=== PATIENT | female | born 1990 | race Caucasian/White ===

== ENCOUNTER → 2017-12-03 15:27 | Outpatient (CLI) | payer OTHER, SELFPAY ==
--- NOTE | 2017-12-03 15:30 | MR_ITS ---
MR cervical spine wo con, MR 3-d myelogram/MRCP HISTORY: Neck pain and tightness ITS.REASON: CERVICAL NECK PAIN ORDERING PHYSICIAN: Anh Moss PATIENT AGE: 27 years Comparison: None TECHNIQUE: Standard multiplanar multiecho sequences are performed without contrast. 3-D MIP and myelographic images are also rendered and reviewed FINDINGS: Unremarkable craniocervical junction. C2-C3, C4-C5, and C5-C6 have an unremarkable appearance. There is minimal left foraminal narrowing at C3-C4 from uncovertebral hypertrophy. C6-C7: Minimal bulging disc is present at C6-C7 with mild left foraminal narrowing from bulging disc and uncovertebral hypertrophy. Mild left uncovertebral hypertrophy with mild left-sided foraminal narrowing at C7-T1. No disc herniation or canal stenosis. IMPRESSION: Mild cervical spondylosis as detailed above minimal left foraminal narrowing at C3-C4 C6-C7 and C7-T1. No canal stenosis or disc herniation evident
--- NOTE | 2017-12-03 15:30 | MR_ITS ---
MR thoracic spine wo con HISTORY: Mid upper back pain, pain between scapula ITS.REASON: PAIN IN THORACIC SPINE ORDERING PHYSICIAN: Anh Moss PATIENT AGE: 27 years TECHNIQUE: Standard multiplanar multiecho sequences are performed without contrast. 3-D MIP and myelographic images are also rendered and reviewed FINDINGS: There is normal alignment. No fracture or dislocation. The disc are well-hydrated. No canal stenosis, disc herniation or other significant anomalies. IMPRESSION: Negative MRI of the thoracic spine
== END ==
PROVIDERS: PCP Family Medicine; Visit Provider Nurse Practitioner
DX: M54.2 Cervicalgia (principal); M54.6 Pain in thoracic spine
CPT/HCPCS: 72141; 72146; 76376

== ENCOUNTER → 2018-10-11 14:58 | Outpatient (CLI) | payer OTHER, SELFPAY | PROVIDERS: Visit Provider Nurse Practitioner Family | DX: Z00.00 Encounter for general adult medical examination without abnormal findings (principal) ==

== ENCOUNTER → 2018-11-03 15:23 | Outpatient (POV) | payer OTHER, SELFPAY | PROVIDERS: Visit Provider Dermatology | DX: Z00.00 Encounter for general adult medical examination without abnormal findings (principal) ==

== ENCOUNTER → 2019-11-24 13:27 | Outpatient (CLI) | payer OTHER, SELFPAY ==
--- NOTE | 2019-11-24 13:31 | US_ITS ---
PROCEDURE: US TRANSVAGINAL CLINICAL INDICATION: INFERTILITY MANAGEMENT, COMPARISON: No exams were available for comparison FINDINGS: UTERUS: 6cm x 4cmx 3cm with a combined endometrial thickness of 6.4mm LEFT OVARY: [id number] with a volume of 8.1ml. RIGHT OVARY: [id number] with a volume of 11.2ml. There is blood flow present to both ovaries. There are some small follicles of the ovaries. There is a small amount fluid in the cul-de-sac. IMPRESSION: Small amount fluid in the cul-de-sac otherwise negative pelvic ultrasound Dictated by: Mark Frias MD 11/24/2019 15:26 Electronically signed by Mark Frias MD in [place] 11/24/2019 15:26
== END ==
PROVIDERS: PCP Nurse Practitioner Family; Visit Provider Nurse Practitioner Family
DX: N97.9 Female infertility, unspecified (principal); Z31.9 Encounter for procreative management, unspecified
CPT/HCPCS: 76830

== ENCOUNTER → 2020-01-23 16:33 | Outpatient (CLI) | payer OTHER, SELFPAY ==
[2020-01-23 18:00] LABS: HCG,Quantitative 132860 mIU/ml (0-5.42)
== END ==
PROVIDERS: PCP Nurse Practitioner Family; Visit Provider Nurse Practitioner
DX: N92.5 Other specified irregular menstruation (principal)
CPT/HCPCS: 36415; 84702

== ENCOUNTER 2020-08-04 11:25 | Emergency (ER) | payer OTHER, SELFPAY ==
[2020-08-04 11:40] VITALS: BP 132/88; PULSE 88; RESP 16; TEMP 36.7; O2SAT 98; BMI 26.1
[2020-08-04 11:59] VITALS: BP 132/88; PULSE 88; RESP 16; TEMP 36.7; O2SAT 98
== END 2020-08-04 12:00 | disposition home or self-care (01) ==
LOC: UTC 11:29
PROVIDERS: Emergency Provider Physician Assistant; PCP Nurse Practitioner Family
DX: Z23 Encounter for immunization (principal)
CPT/HCPCS: 90471; 90715

== ENCOUNTER → 2021-04-20 13:45 | Outpatient (CLI) | payer OTHER, SELFPAY ==
[2021-04-20 14:12] LABS: Hemoglobin A1C 5.4 % (4.0-6.0)
[2021-04-20 14:53] LABS: Alanine Aminotransferase 14 U/L (12-78); Albumin Level 4.4 g/dl (3.5-5.0); Albumin/Globulin Ratio 1.5 (1.1-1.8); Alkaline Phosphatase 125 U/L (38-126); Anion Gap 11.2 mEq/L (5-15); Aspartate Amino Transferase 21 U/L (14-36); Bilirubin,Total 0.2 mg/dl (0.2-1.3); Blood Urea Nitrogen 9 mg/dl (7-17); Calcium 9.3 mg/dl (8.4-10.2); Carbon Dioxide 28 mmol/L (22.0-30.0); Chloride 104 mmol/L (98-107); Estimated Glomerular Filt Rate 144 ml/min (>60); GFR (African American) 174 ML/MIN (>60); Glucose 80 mg/dl (74-100); Potassium 4.2 mmoL/L (3.5-5.1); Sodium 139 mmol/L (136-145); Total Protein,Serum 7.4 g/dl (6.3-8.2)
[2021-04-20 15:14] LABS: Free Thyroxine Index 2.5 ug/dL (5.93-13.13); T4 (Thyroxine) 8.1 ug/dl (5.53-11.0); Triiodothryronine (T3) Uptake 31 % (23.5-40.5)
[2021-04-20 15:27] LABS: Thyroid Stimulating Hormone 1.08 uIU/mL (0.465-4.68)
[2021-04-20 15:42] LABS: Vitamin B12 517 pg/mL (239-931)
[2021-04-20 17:28] LABS: Basophils # 0.1 K/mm3 (0-0.2); Basophils % 1.1 % (0.1-2.0); Eosinophils # 0.3 K/mm3 (0.0-0.4); Eosinophils % 4.6 % (0.1-12.0); Hematocrit 41.7 % (37.0-47.0); Hemoglobin 13.8 g/dL (12.2-16.2); Lymphocytes # 2.6 K/mm3 (0.7-4.5); Lymphocytes % 46.4 % (10-50); Mean Corpuscular HGB Conc 33.2 g/dL (31.8-35.4); Mean Corpuscular Hemoglobin 29.5 pg (27.0-31.2); Mean Corpuscular Volume 88.7 fl (81-99); Monocytes # 0.3 K/mm3 (0.1-1.0); Neutrophils # 2.3 K/mm3 (1.8-7.8); Neutrophils % 41.9 % (37.0-80.0); Platelet Count 350 K/mm3 (142-424); Red Blood Count 4.69 M/mm3 (4.20-5.40); Red Cell Distribution Width 14.1 % (11.5-17.5); White Blood Count 5.5 K/mm3 (4.8-10.8)
[2021-04-20 20:26] LABS: Iron 50 ug/dL (37-170)
[2021-04-20 20:35] LABS: Total Iron Binding Capacity 396 ug/dL (265-497)
[2021-05-01 20:09] LABS: 1,25 Dihydroxy Vitamin D 85 pg/mL (.); 1,25-Dihydroxy, Vitamin D-2 <10 pg/mL (.); 1,25-Dihydroxy, Vitamin D-3 84 pg/mL (.)
== END ==
PROVIDERS: Visit Provider Nurse Practitioner Psychiatric/Mental Health
DX: Z00.00 Encounter for general adult medical examination without abnormal findings (principal); Z79.899 Other long term (current) drug therapy
CPT/HCPCS: 36415; 80053; 82607; 82652; 83036; 83540; 83550; 84436; 84443; 84479; 85025

== ENCOUNTER → 2021-07-29 13:21 | Outpatient (CLI) | payer OTHER, SELFPAY ==
[2021-07-29 13:50] LABS: Coronavirus 19, PCR Not Detected (NotDetected); Influenza A, PCR Not Detected (NotDetected); Influenza B, PCR Not Detected (NotDetected)
== END ==
PROVIDERS: PCP Nurse Practitioner Family; Visit Provider Nurse Practitioner Family
DX: Z20.822 Contact with and (suspected) exposure to COVID-19 (principal)
CPT/HCPCS: C9803; U0003; U0005

== ENCOUNTER → 2021-08-08 17:53 | Outpatient (CLI) | payer OTHER, SELFPAY | PROVIDERS: Visit Provider Nurse Practitioner Family | DX: J02.9 Acute pharyngitis, unspecified (principal) ==

== ENCOUNTER 2021-12-18 14:42 | Emergency (ER) | payer OTHER, SELFPAY ==
[2021-12-18 14:55] VITALS: BP 110/75; PULSE 83; RESP 19; TEMP 36.7; O2SAT 98; BMI 22.6
--- NOTE | 2021-12-18 15:17 | HMH.EDUTC ---
[facility] [place] Disposition Clinical Impression: Cough Disposition: Home, Self-Care Condition on Discharge: Good Instructions: Cough, Fluticasone Nasal [place] Additional Instructions: *Monitor Temp, Over the counter Motrin or Tylenol as directed/as needed Tylenol every 4 hours and Motrin every 6 hours (as long as your family doctor has told you that you can take it) for fever or pain. and straight to ER if unable to lower temp less than 101.0 after medication given *Warm salt water gargles may help to soothe the throat and help with cough *Throat Lozenges *Warm fluids like tea with honey may help to soothe the throat *Sleep elevated *Humidifier/Vaporizer *Flonase 2 sprays in each nostril daily but be aware that it may take 2-3 days before you notice improvement Over the counter plain Robitussin for cough Follow up IMMEDIATELY for new or worsening symptoms or no Noticeable improvement over the next 48-72 hours. 911 for difficulty breathing or swallowing Prescriptions: Fluticasone Propionate [Flonase 50mcg nasal spray 16gm] 1 spr NS DAILY #1 each Transmission Status: Pending to [facility] Referrals: Deng Jo MD [Primary Care Provider] - As needed Time of Disposition: 15:20 Medical Decision Making - Mohan Inquiry Pt receiving controlled substance: No Mohan was queried for this patient: No Vital Signs: 12/18/21 14:55 Temperature 98.1 F Temperature Source Oral Pulse Rate [Left Brachial] 83 Respiratory Rate 19 Blood Pressure [Left Arm] 110/75 Blood Pressure Mean [Left Arm] 86 Blood Pressure Source [Left Arm] Automatic Cuff Blood Pressure Position [Left Arm] Sitting 02 Sat by Pulse Oximetry 98 Oxygen Delivery Method Room Air [facility] [place] HPI - General Stated complaint: cough Time Seen by Provider: 12/18/21 15:17 Mode of Arrival: Ambulatory Source of Information: Patient Limitations: No Limitations Description of Symptoms (Recalled from Triage Doc. by RN): PATIENT C/O DRY COUGH X 5 DAYS HEENT Symptoms (Recalled from RN notes): No Resp Symptoms (Recalled from RN notes): Yes Skin Symptoms (Recalled from RN notes): No MS Symptoms (Recalled from RN notes): No Functional Status (Recalled from RN notes): WNL - History of Present Illness Provider Complaint: Patient states that she has had dry cough for about 5 days States that she thinks it just her allergies but she was hoping there was a prescription cough medication that she could get States that she is 23wks OB - Related Data Home Medications Medication Instructions Recorded Confirmed ferrous sulfate 325 mg (65 mg 325 mg PO DAILY 04/26/20 10/29/21 iron) tablet Previous Rx's Medication Instructions Recorded trazodone 50 mg tablet 50 mg PO QHS PRN #30 tab 09/26/21 aripiprazole 5 mg tablet 5 mg PO QHS #30 tab 10/29/21 sertraline 50 mg tablet 50 mg PO DAILY #30 tab 10/29/21 Fluticasone Propionate [Flonase 1 spr NS DAILY #1 each 12/18/21 50mcg nasal spray 16gm] Allergies Allergy/AdvReac Type Severity Reaction Status Date / Time No Known Allergies Allergy Verified 10/29/21 13:49 - Worker's Comp Is this a Worker's Comp case?: No [facility] History - Hepatitis A Screen Attestation statement:: This patient has been screened for Hepatitis A risk factors. I have reviewed the patient's past medical history: Yes Medical History: Reports:: Depression Denies:: Cancer, Diabetes Mellitus Type 1, Diabetes Mellitus Type 2, Hypertension, Internal Pacemaker, MRSA Other Surgeries: Yes: No Previous Surgery, . No: Pacemaker Amputation: No Fractures: No - Social History Smoking Status: Never smoker Alcohol Intake: never Alcohol Intake Frequency:: holidays/special occasions only Substance Use Type: denies use Occupational Status: other Housing: house Household Members: spouse - Psychiatric History Pschychiatric History:: Reports:: Depression ROS Obtained: Yes All systems reviewed & no additional complaints, Yes Systems review
[2021-12-18 15:22] VITALS: BP 110/75; PULSE 83; RESP 19; TEMP 36.7; O2SAT 98
== END 2021-12-18 15:23 | disposition home or self-care (01) ==
PROVIDERS: Emergency Provider Nurse Practitioner; PCP Emergency Medicine
DX: R05.9 Cough, unspecified (principal)
CPT/HCPCS: 99212; G0463

== ENCOUNTER → 2022-03-09 19:52 | Outpatient (CLI) | payer OTHER, SELFPAY | PROVIDERS: Visit Provider Physician Assistant | DX: Z23 Encounter for immunization (principal) | CPT/HCPCS: 90714 ==

== ENCOUNTER → 2022-09-11 12:19 | Outpatient (CLI) | payer OTHER, SELFPAY ==
[2022-09-11 12:50] LABS: Barbiturates Screen,Urine Negative ng/ml (<200); Benzodiazepines Screen,Urine Negative ng/ml (<200)
[2022-09-11 12:51] LABS: Amphetamine/Metha Screen,Urine Positive ng/ml (<1000); Cannabinoid Screen,Urine Negative ng/ml (<50)
[2022-09-11 12:52] LABS: Cocaine Screen,Urine Negative ng/ml (<300)
[2022-09-11 12:53] LABS: Methadone Screen,Urine Negative ng/ml (<300); Opiate Screen,Urine Negative ng/ml (<300)
[2022-09-11 12:54] LABS: Phencyclidine Screen,Urine Negative ng/ml (<25)
== END ==
PROVIDERS: Visit Provider Nurse Practitioner Psychiatric/Mental Health
DX: Z02.83 Encounter for blood-alcohol and blood-drug test (principal)
CPT/HCPCS: 80305

== ENCOUNTER → 2023-02-18 22:11 | Outpatient (CLI) | payer OTHER, SELFPAY ==
[2023-02-18 13:46] LABS: Amphetamine/Metha Screen,Urine Positive ng/ml (<1000); Phencyclidine Screen,Urine Negative ng/ml (<25)
[2023-02-18 15:37] LABS: Barbiturates Screen,Urine Negative ng/ml (<200); Benzodiazepines Screen,Urine Negative ng/ml (<200); Cannabinoid Screen,Urine Negative ng/ml (<50); Cocaine Screen,Urine Negative ng/ml (<300); Opiate Screen,Urine Negative ng/ml (<300)
[2023-02-19 16:00] LABS: Methadone Screen,Urine Negative ng/ml (<300)
== END ==
PROVIDERS: PCP Nurse Practitioner Psychiatric/Mental Health; Visit Provider Nurse Practitioner Psychiatric/Mental Health
DX: Z51.81 Encounter for therapeutic drug level monitoring (principal)
CPT/HCPCS: 80305

== ENCOUNTER → 2023-02-24 14:05 | Outpatient (CLI) | payer OTHER, SELFPAY | PROVIDERS: PCP Nurse Practitioner Family; Visit Provider Nurse Practitioner Family | DX: N39.0 Urinary tract infection, site not specified (principal) | CPT/HCPCS: 87086 ==

== ENCOUNTER → 2023-03-04 15:36 | Outpatient (CLI) | payer OTHER, SELFPAY | PROVIDERS: PCP Nurse Practitioner Family; Visit Provider Nurse Practitioner Family | DX: R39.9 Unspecified symptoms and signs involving the genitourinary system (principal); B96.29 Other Escherichia coli [E. coli] as the cause of diseases classified elsewhere | CPT/HCPCS: 87086; 87088; 87186 ==

== ENCOUNTER 2024-06-15 16:28 | Outpatient (CLI) | payer OTHER, SELFPAY ==
[2024-06-15 14:02] LABS: Basophils # 0.1 K/mm3 (0-0.2); Basophils % 1.2 % (0.1-2.0); Eosinophils # 0.2 K/mm3 (0.0-0.4); Lymphocytes # 2.3 K/mm3 (0.7-4.5); Lymphocytes % 43.4 % (10-50); Mean Corpuscular HGB Conc 31.4 g/dL (31.8-35.4); Mean Corpuscular Hemoglobin 22.1 pg (27.0-31.2); Mean Corpuscular Volume 70.5 fl (81-99); Mean Platelet Volume 6.9 fl (7.4-10.4); Monocytes # 0.4 K/mm3 (0.1-1.0); Monocytes % 6.7 % (1.7-9.3); Neutrophils # 2.4 K/mm3 (1.8-7.8); Neutrophils % 45.7 % (37.0-80.0); Platelet Count 329 K/mm3 (142-424); Red Blood Count 4.54 M/mm3 (4.20-5.40); Red Cell Distribution Width 16.9 % (11.5-17.5); White Blood Count 5.2 K/mm3 (4.8-10.8)
[2024-06-15 14:41] LABS: Albumin Level 4.4 g/dl (3.5-5.0); Chloride 104 mmol/L (98-107); Sodium 138 mmol/L (136-145)
[2024-06-15 14:44] LABS: Alanine Aminotransferase 19 U/L (12-78); Albumin/Globulin Ratio 1.7 (1.1-1.8); Alkaline Phosphatase 100 U/L (38-126); Aspartate Amino Transferase 34 U/L (14-36); Bilirubin,Total 0.3 mg/dl (0.2-1.3); Blood Urea Nitrogen 8 mg/dl (7-17); Calcium 9.2 mg/dl (8.4-10.2); Carbon Dioxide 28 mmol/L (22.0-30.0); Cholesterol 206 mg/dl (140-200); Estimated Glomerular Filt Rate 96 ml/min (>60); GFR (African American) 116 ML/MIN (>60); Globulin 2.6 g/dL (1.3-3.2); Glucose 82 mg/dl (74-100); Triglycerides 140 mg/dl (30-150); VLDL Cholesterol 28 mg/dL (0-40)
[2024-06-15 14:45] LABS: Chol/HDL Ratio 2.9 (1-3.5); HDL Cholesterol 70 mg/dl (40-60); Magnesium 2.1 mg/dl (1.6-2.3)
[2024-06-15 15:03] LABS: Free T4 (Free Thyroxine) 1.14 ng/dl (0.78-2.19)
[2024-06-15 15:18] LABS: Anion Gap 10.6 mEq/L (5-15); Potassium 4.6 mmoL/L (3.5-5.1)
[2024-06-15 15:31] LABS: Direct LDL Cholesterol 104.03 mg/dL (100-129)
[2024-06-15 15:36] LABS: T4 (Thyroxine) 8.8 ug/dl (5.53-11.0)
[2024-06-15 15:38] LABS: 25-OH Vitamin D, Total 31.8 ng/mL (30-100)
[2024-06-15 15:50] LABS: Thyroid Stimulating Hormone 1.41 uIU/mL (0.465-4.68)
[2024-06-15 17:25] LABS: Vitamin B12 497 pg/mL (239-931)
[2024-06-16 08:21] LABS: Estradiol 98.1 pg/mL (.); FSH 4.8 mIU/mL (.); Progesterone <0.1 ng/mL (.); Thyroid Peroxidase Antibodies <9 IU/mL (0-34); Triiodothyronine (T3) Free 2.5 pg/mL (2.0-4.4)
[2024-06-16 12:13] LABS: Antinuclear Antibodies (ANA) Negative (Negative)
[2024-06-16 14:12] LABS: Thyroglobulin Level <1.0 IU/mL (0.0-0.9)
[2024-06-21 23:39] LABS: Free Testosterone (Direct) 0.7 pg/mL (0.0-4.2); Testosterone, Total, LC/MS 16.9 ng/dL (10.0-55.0)
== END 2024-06-15 23:59 | disposition home or self-care (01) ==
LOC: LAB.DROPOF 16:29
PROVIDERS: PCP Nurse Practitioner Family; Visit Provider Nurse Practitioner Family
DX: L65.9 Nonscarring hair loss, unspecified (principal); N92.6 Irregular menstruation, unspecified; R61 Generalized hyperhidrosis; Z13.220 Encounter for screening for lipoid disorders; E55.9 Vitamin D deficiency, unspecified
CPT/HCPCS: 80050; 80053; 80061; 82306; 82607; 82670; 83001; 83002; 83735; 84144; 84436; 84439; 84443; 84481; 85025; 86038; 86376; 86800

== ENCOUNTER 2024-09-30 08:00 | Outpatient (CLI) | payer OTHER, SELFPAY ==
--- NOTE | 2024-09-30 08:02 | CT_ITS ---
FINAL REPORT TECHNIQUE: Oral and IV contrast enhanced exam This study was performed with techniques to keep radiation doses as low as reasonably achievable, (ALARA). Individualized dose reduction techniques using automated exposure control or adjustment of mA and/or kV according to the patient''s size were employed. CLINICAL HISTORY: umbilical hernia COMPARISON: None FINDINGS: Abdomen: Lung bases are clear. The gallbladder is unremarkable. Liver has an unremarkable CT appearance. The pancreas and adrenal glands are unremarkable. Mild splenomegaly is noted, the spleen measuring 12.7 cm. Kidneys show no mass or obstruction. No bowel obstruction or fluid collection is seen. A small umbilical hernia is present containing fat. The abdominal wall defect measures up to 12 mm in size. Pelvis: The appendix is normal in appearance. Pelvic bowel loops are unremarkable. A trace amount of free fluid is noted in the pelvis, likely physiologic. The uterus and ovaries are unremarkable. An IUD is positioned in the uterus. IMPRESSION: Tiny umbilical hernia containing fat as described. Reviewed, Interpreted and Dictated by Rosa Holguin MD Transcribed by Parris Pelaez Authenticated and [facility]
[2024-09-30] MEDS: SODIUM CHLORIDE 0.9% 10ML SYR (RAD ONLY) 10 ML IV (08:18)
[2024-09-30] MEDS: IOPAMIDOL-370 (76%);100ML BOTTLE 75 ML IV (08:18)
== END 2024-09-30 23:59 | disposition home or self-care (01) ==
LOC: RAD 08:01
PROVIDERS: PCP Nurse Practitioner Family; Visit Provider Nurse Practitioner Family
DX: K42.9 Umbilical hernia without obstruction or gangrene (principal); K59.00 Constipation, unspecified
CPT/HCPCS: 74177; Q9967

== ENCOUNTER 2024-10-04 14:51 | Outpatient (CLI) | payer OTHER, SELFPAY ==
[2024-10-04 18:09] LABS: Basophils # 0.1 K/mm3 (0-0.2); Eosinophils # 0.1 K/mm3 (0.0-0.4); Eosinophils % 1.6 % (0.1-12.0); Hematocrit 32.3 % (37.0-47.0); Hemoglobin 9.9 g/dL (12.2-16.2); Lymphocytes # 2.7 K/mm3 (0.7-4.5); Lymphocytes % 38.8 % (10-50); Mean Corpuscular HGB Conc 30.7 g/dL (31.8-35.4); Mean Corpuscular Volume 71.6 fl (81-99); Mean Platelet Volume 10.4 fl (7.4-10.4); Monocytes # 0.5 K/mm3 (0.1-1.0); Monocytes % 6.8 % (1.7-9.3); Neutrophils # 3.6 K/mm3 (1.8-7.8); Neutrophils % 51.7 % (37.0-80.0); Platelet Count 439 K/mm3 (142-424); Red Blood Count 4.51 M/mm3 (4.20-5.40); Red Cell Distribution Width 16.8 % (11.5-17.5); White Blood Count 6.9 K/mm3 (4.8-10.8)
[2024-10-04 18:32] LABS: Albumin Level 4.8 g/dl (3.5-5.0); Chloride 101 mmol/L (98-107); Sodium 135 mmol/L (136-145)
[2024-10-04 18:33] LABS: Potassium 4.6 mmoL/L (3.5-5.1)
[2024-10-04 18:35] LABS: Alanine Aminotransferase 22 U/L (12-78); Anion Gap 12.6 mEq/L (5-15); Aspartate Amino Transferase 32 U/L (14-36); Bilirubin,Total 0.2 mg/dl (0.2-1.3); Blood Urea Nitrogen 5 mg/dl (7-17); Carbon Dioxide 26 mmol/L (22.0-30.0); Estimated Glomerular Filt Rate 114 ml/min (>60); GFR (African American) 138 ML/MIN (>60)
[2024-10-04 18:36] LABS: Albumin/Globulin Ratio 1.8 (1.1-1.8); Alkaline Phosphatase 96 U/L (38-126); Calcium 9.8 mg/dl (8.4-10.2); Globulin 2.7 g/dL (1.3-3.2); Glucose 77 mg/dl (74-100); Total Protein,Serum 7.5 g/dl (6.3-8.2)
[2024-10-04 19:07] LABS: Ferritin 6.51 ng/ml (6.24-137)
[2024-10-06 16:18] LABS: EBV Ab VCA, IgM <36.0 U/mL (0.0-35.9)
== END 2024-10-04 23:59 | disposition home or self-care (01) ==
LOC: LAB.DROPOF 10-05 14:04
PROVIDERS: PCP Nurse Practitioner Family; Visit Provider Nurse Practitioner Family
DX: R16.1 Splenomegaly, not elsewhere classified (principal)
CPT/HCPCS: 80053; 82728; 85025; 86664; 86665

== ENCOUNTER 2025-05-20 07:57 | Outpatient (CLI) | payer OTHER, SELFPAY ==
--- NOTE | 2025-05-20 08:00 | US_ITS ---
FINAL REPORT TECHNIQUE: Real-time grayscale and color ultrasound of the thyroid was performed. CLINICAL HISTORY: left sided thyroid tenderness COMPARISON: None FINDINGS: The thyroid gland measures 33 x 8 x 12 mm on the right and 35 x 9 x 13 mm on the left. The isthmus measures 2 mm. The parenchyma is unremarkable . Nodules: There is a nodule in the isthmus which is anechoic measuring 12 mm consistent with a colloid cyst, TR 1. IMPRESSION: No suspicious mass or nodule in the thyroid. Reviewed, Interpreted and Dictated by Aditya Jensen MD Transcribed by Tina Rob Authenticated and [facility]
--- OUTSIDE RECORDS SUMMARY | 2025-05-20 08:00 | XMS_ITS | Patient Health Record ---
Author Organization [facility] Address [address] [place] [address] Care Team Providers Care Director Trading Name Role Phone Bertrand Sosa Unavailable [phone] Allergies No Known Allergies Results Component Value Reference Range Notes ESTRADIOL Reviewed date:05/26/2024 09:20:45 AM Interpretation:Normal Performing Lab: Notes/Report: Estradiol Reference Ranges: Adult Males: 7.6-42.6 pg/mL Adult Femles: Follicular phase 12.5-166.0 pg/mL Ovulation phase 85.8-498.0 pg/mL Luteal phase 43.8-211.0 pg/mL Postmenopausal <6.0-54.7 pg/mL : First Trimester 215.0- >4300.0 pg/mL Child (1-10 years): Male <6.0-20.0 pg/mL Female 6.0-27.0 pg/mL Results may be falsely increased if patient taking Biotin. ESTRADIOL LEVEL 223.0 Lab specimen s received at a [facility].?See result details for the performing location information. FOLLICLE STIMULATING HORMONE Reviewed date:05/26/2024 09:20:57 AM Interpretation:Normal Performing Lab: Notes/Report: FSH Reference Ranges: Adult Males: 1.5-12.4 mIU/mL Adult Females: Folicular Phase ?3.5-12.5 mIU/ml Ovulation Phase ?4.7-21.5 mIU/ml Lutal Phase ? ? ?1.7-7.7 mIU/ml Postmenopausal ? 25.8-134.8 mIU/ml Results may be falsely decreased if patient taking Biotin. FOLLICLE STIMULATING HORMONE 3.79 Lab specimens received at a [facility].?See result details for the performing location information. TSH Reviewed date:05/26/2024 09:21:01 AM Interpretation:Normal Performing Lab: Notes/Report: THYROID STIMULATING HORMONE (TSH) UIU/ML 1.320 0.270-4.20 uIU/mL Lab specimens receiv ed at a [facility].?See result details for the performing location information. Reason For Referral No Information Medications Medication SIG (Take, Route, Frequency, Duration) Notes Start Date End Date Status Paragard Intrauterine Copper 06-26-2022 Active Abilify 5 MG Tablet 1 tablet Orally Once a day Active Adderall Active traZODone HCl 50 MG Tablet 1 tablet at bedtime as needed Orally Once a day PRN Active Zoloft 50 MG Tablet 1 tablet Orally Once a day Active Social History Tobacco Use: Social History Observation Description Date Details (start date - stop date) Never Smoker NA - NA Social History Sexual History: Social Info Question Answer Notes Sexual History Had sex in the past 12 months (vaginal, oral, or anal)? Yes Drugs/Alcohol: Social Info Question Answer Notes Drugs Have you used drugs other than those for medical reasons in the past 12 months? No Steroid Use Have you used anabolic (body building) st eroids? No Alcohol Screen Did you have a drink containing alcohol in the past year? No Points 0 Interpretation Negative Tobacco Use: Social Info Question Answer Notes Tobacco Use/Smoking Are you a nonsmoker Additional Details Category Social Info Options Details Miscellaneous: Sexually active: SEXUAL AC TIV: Current Problems Problem Type SNOMED Code ICD Code Onset Dates Problem Status W/U Status Risk Notes Problem Postcoital bleeding (42598532) Postcoital bleeding (N93.0) Active confirmed Problem Cyst of Bartholin's gland duct (95078625) Bartholin cyst (N75.0) 021 Active confirmed Cyst of right Bartholin's gland duct Problem Menopause (563836222) Hot flashes (N95.1) Active confirmed Problem state, 2 weeks (86183682) 2 weeks follow-up (Z39.2) 021 Active confirmed visit Problem Second trimester (68205900) Supervision of other normal , second trimester (Z34.82) 020 Active confirmed Supervision of other normal , second trimester Problem Morning sickness (39085097) Nausea and vomiting during (O21.9) Active confirmed Problem Primigravida (658563940) Encounter for care in third trimester of first (Z34.03) 020 Active confirmed Encounter for supervision of normal first , third trimester Problem Contraception care education done (17610982212049 1) BCP ( control pills) initiation (Z30.011) 021 Active confirmed Encounter for initial prescription of contraceptive pills Problem History of section (395454059) Previous section (Z98.891) Active confirmed Problem Pain in female genitalia on intercourse (34204199) Pain in female genitalia on intercourse (N94.10) Active confirmed Problem screening (417770441) screening for streptococcus B (Z36.85) 021 Active confirmed Encounter for screening for Streptococcus B of mother Problem History and physical examination, follow-up (299166647) *Follow-up for Non-Malignant conditions (code also - acquired absence of organ (Z90.-) and identify personal hx malignant neoplasm (Z85.-)) (Z09) 021 Active confirmed Postoperative examination Problem Missed period (65436069) Missed period (N92.6) Active confirmed Plan Of Treatment No Information Insurance Providers Payer Name Payer Address Payer Phone Subscriber Number Group Number Insured Name Patient Relationship to Insured Coverage Start Date Coverage End Date [employer] [facility] [address] [place] [phone] [id number] Marlin Fine Self - patient is the insured 2 5 Medical (General) History Medical History History ICD Code Anxiety BV Depression hemorrhage Surgical History Surgery Date(Month/Year) c/s 08/2020 Hospitalization History Reason Date(Month/Year) L&D
--- OUTSIDE RECORDS SUMMARY | 2025-05-20 08:00 | XMS_ITS | Clinical Summary ---
Author Organization [facility] Address [address] [place] [address] Care Team Providers Care Emissions Technician Name Role Phone Sarah Carvalho APRN Primary Care Provider [phone] Allergies No known active allergies Medications sertraline (ZOLOFT) 100 MG tablet Take 1 tablet by mouth Daily. Active ARIPiprazole (ABILIFY) 5 MG tablet Take 1 tablet by mouth Daily. Active traZODone (DESYREL) 100 MG tablet Take 1 tablet by mouth At Night As Needed for Sleep. Active methylphenidate (Concerta) 54 MG CR tablet Take 1 tablet by mouth Every Morning Active methylphenidate (RITALIN) 20 MG tablet Take 1 tablet by mouth Daily. Active HYDROcodone-acet aminophen (NORCO) 5-325 MG per tabletIndication s:Umbilical hernia without obstruction and without gangrene Take 1 tablet by mouth Every 6 (Six) Hours As Needed for Pain. 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 Breech presentation 08/17/2020 Resolved Problems Problem Noted Date Diagnosed Date Resolved Date Umbilical hernia without obs truction and without gangrene 12/31/2024 12/31/2024 39 weeks gestation of 04/09/2022 04/10/2022 with 37 weeks completed gestation 08/17/2020 08/20/2020 Social History Tobacco Use Types Packs/Day Years Used Date Smoking Tobacco: Former Cigarettes 0.5 5 2 007 - 2011 Smokeless Tobacco: Never Tobacco Cessation:Counseling Given: Not Answered Alcohol Use Standard Drinks/Week Comments Not Currently 0 (1 standard drink = 0.6 oz pur e alcohol) AUDIT-C Answer Date Recorded Q1: How often do you have a drink containing alcohol? Never 04/09/2022 Q2: How many drinks containi ng alcohol do you have on a typical day when you are drinking? Patient does not drink Q3: How often do you have si x or more drinks on one occasion? Never 04/09/2022 [place] Depression Scale Answer Date Recorded [place] Depression Scale Total 0 04/12/2022 The thought of harming myself has occurred to me . Unrecognized value 04/12/2022 Abuse Screen Answer Date Recorded Feels Unsafe at Home or Work/School no 01/03/2025 Feels Threatened by Someone no 12/13 Does Anyone Try to Keep You From Having Contact with Others or Doing Things Outside Your Home? no 01/03/2025 Physical Signs of Abuse Present no 01/03/2025 Housing Stability Answer Date Recorded Current Living Arrangements home 12/13 Potentially Unsafe Housing Conditions Not on pamella e 12/31/2024 Disabilities Answer Date Recorded Difficulty Concentrating, Remembering or Making Decisions no 12/31/2024 Difficulty Managing Errands Independently no 12/31/2024 Education Answer Date Recorded What is the highest level of school you have completed or the highest degree you have received? High school graduate 04/09/2022 Comments No Sex and Gender Information Value Date Recorded Sex Assigned at Not on file Legal Sex Female 4:55 PM EDT Gender Identity Not on file Sexual Orientation Not on file Last Filed Vital Signs Vital Sign Reading Time Taken Comments Blood Pressure 98/63 01/04/2025 2:00 AM EDT Pulse 84 01/04/2025 2:00 AM EDT Temperature 37 C (98.6 F) 01/03/2025 9:14 PM EDT Respiratory Rate 18 01/03/2025 11:57 PM EDT Oxygen Saturation 95% 01/04/2025 2:00 AM EDT Inhaled Oxygen Concentration - - Weight 70.3 kg (155 lb) 01/03/2025 9:14 PM EDT Height 167.6 cm (5' 6 ) 01/03/2025 9:14 PM EDT Body Mass Index 25.02 01/03/2025 9:14 PM EDT Plan of Treatment Health Maintenance Due Date Last Done Comments Annual Gynecologic Pelvic an d Breast Exam 1990 ANNUAL PHYSICAL 08/20/2020 INFLUENZA VACCINE 02/11/2025 TDAP/TD VACCINES (2 - Td or Tdap) 08/04/2030 021 HEPATITIS C SCREENING Completed 02/25/2020 Pneumococcal Vaccine 0-49 Aged Out No longer eligible based on patient's age to complete this topic Medical Devices Implanted Type Area Administrative Technician Device Identifier Shelf Expiration Date Model / Serial / Lot Dev Wnd/Cls Tiss Stratafix Abs Symm Pds Pls Ct2 Sz1 15cm Turner - [id number] Implanted:Qt y: 3 on 12/31/2024 by Curry Cao MD at [facility] Implant N/A: Abdomen ETH[employer] DIV [employer] J AND J 03/16/2026 [id number] / / [id number] Dev Contrl Tiss Stratafix Spiral Pls Pds Sh 2/0 30cm - [id number] Implanted:Qt y: 2 on 12/31/2024 by Curry Cao MD at [facility] Implant N/A: Abdomen [employer] DIV [employer] J [employer] J 11/10/2025 [id number] / / [id number] Postn Echo2 Ellipse [id number] - [id number] Implanted:Qt y: 1 on 12/31/2024 by Curry Cao MD at [facility] Implant N/A: Abdomen DAVOL (DIV OF [employer]) [id number] 10/08/2025 [id number] / / [id number] Procedures Procedure Name Priority Date/Time Associated Diagnosis Comments HEPATITIS C ANTIBODY Routine 02/25/2020 10:17 AM EDT 12 weeks gestation of Encounter for supervision of normal first in first trimester from Last 3 Months or Most Recently Relevant to Health Maintenance Results * Hepatitis C Antibody (02/25/2020 10:17 AM EDT) Hepatitis C Ab Non-Reacti ve Non-Reacti ve 02/25/2020 10:45 PM EDT [facility] Blood Venipuncture / Unknown 02/25/2020 10:17 AM EDT 02/25/2020 10:21 AM EDT Narrative [facility] - 02/25/2020 10:45 PM EDT Results may be falsely decreased if patient taking Biotin. us Gloria Melendez [facility] BLOOD ORDERABLES Final Re sult [facility]
[address] [place] [address], from Last 3 Months or Most Recently Relevant to Health Maintenance Insurance Advance Directives * CPR (Attempt to Resuscitate) (Latest Code Status on File) Date Activated Date Inactivated Comments 04/10/2022 4:54 PM 04/12/2022 3:06 PM Question Answer Comments Code Status (Patient has no pulse and is not breathing): CPR (Attempt to Resuscitate) Medical Interventions (Patie nt has pulse or is breathing): Full * CPR (Attempt to Resuscitate) Date Activated Date Inactivated Comments 08/17/2020 11:28 PM 08/20/2020 2:22 PM Question Answer Comments Code Status (Patient has no pulse and is not breathing): CPR (Attempt to Resuscitate) Medical Interventions (Patie nt has pulse or is breathing): Full * CPR (Attempt to Resuscitate) Date Activated Date Inactivated Comments 08/17/2020 7:50 PM 08/17/2020 11:28 PM Question Answer Comments Code Status (Patient has no pulse and is not breathing): CPR (Attempt to Resuscitate) Medical Interventions (Patie nt has pulse or is breathing): Full * CPR (Attempt to Resuscitate) Date Activated Date Inactivated Comments 08/17/2020 7:48 PM 08/17/2020 7:50 PM Question Answer Comments Code Status (Patient has no pulse and is not breathing): CPR (Attempt to Resuscitate) Medical Interventions (Patie nt has pulse or is breathing): Full Care Teams Emissions Technician Relationship Specialty Start Date End Date Sarah Carvalho APRN [address] [place] [id number] PCP - General Internal Medicine 12/26/24
--- OUTSIDE RECORDS SUMMARY | 2025-05-20 08:00 | XMS_ITS | Clinical Summary ---
Author Organization [facility] Address [address] [place] [address] Care Team Providers Care Obiee Report Developer Name Role Phone Pcp, No Primary Care Provider Unavailabl e Allergies No known active allergies Active Problems Problem Noted Date Diagnosed Date depression associated with second pre gnancy 04/13/2022 Social History Tobacco Use Types Packs/Day Years Used Date Smoking Tobacco: Never Assessed Comments No Sex and Gender Information Value Date Recorded Sex Assigned at Female 04/13/2022 9:08 AM EDT Legal Sex Female 6:20 PM EDT Gender Identity Female 04/13/2022 9:08 AM EDT Sexual Orientation Not on file Last Filed Vital Signs Vital Sign Reading Time Taken Comments Blood Pressure 133/84 04/13/2022 8:02 AM EDT Pulse 73 04/13/2022 8:02 AM EDT Temperature 36.5 C (97.7 F) 04/13/2022 8:02 AM EDT Respiratory Rate 18 04/13/2022 8:02 AM EDT Oxygen Saturation 98% 04/13/2022 8:02 AM EDT Inhaled Oxygen Concentration - - Weight - - Height - - Body Mass Index - - Plan of Treatment Not on file [facility] [place] [address] [employer]ET[employer] [facility] MEDICAID Care Teams Obiee Report Developer Relationship Specialty Start Date End Date Pcp, [place] [address] PCP - General Family Medicine 04/13/22
[2025-05-20 08:58] LABS: Hematocrit 29.9 % (37.0-47.0); Hemoglobin 9.0 g/dL (12.2-16.2); Immature Granulocytes % 0.2 %; Mean Corpuscular HGB Conc 30.1 g/dL (31.8-35.4); Mean Corpuscular Hemoglobin 21.2 pg (27.0-31.2); Mean Corpuscular Volume 70.5 fl (81-99); Nucleated Red Blood Cells % 0 %; Platelet Count 394 K/mm3 (142-424); Red Blood Count 4.24 M/mm3 (4.20-5.40); Red Cell Distribution Width-SD 42.5 fL; White Blood Count 5.3 K/mm3 (4.8-10.8)
[2025-05-20 09:34] LABS: Iron 39 ug/dL (37-170)
[2025-05-20 10:02] LABS: Thyroid Stimulating Hormone 1.75 uIU/mL (0.465-4.68)
[2025-05-20 10:05] LABS: 25-OH Vitamin D, Total 37.8 ng/mL (30-100)
[2025-05-20 10:07] LABS: Ferritin 5.84 ng/ml (6.24-137)
[2025-05-20 10:21] LABS: Vitamin B12 576 pg/mL (239-931)
[2025-05-20 13:56] LABS: Total Iron Binding Capacity 454 ug/dL (265-497)
[2025-05-21 07:23] LABS: Testosterone,Total 13 ng/dL (8-60)
[2025-05-21 08:33] LABS: FSH 4.1 mIU/mL (.); LH 11.4 mIU/mL (.); Triiodothyronine (T3) Free 3.3 pg/mL (2.0-4.4)
[2025-05-23 15:17] LABS: Antinuclear Antibodies (ANA) Negative (Negative)
== END 2025-05-20 23:59 | disposition home or self-care (01) ==
LOC: RAD 07:58
PROVIDERS: PCP Nurse Practitioner Family; Visit Provider Nurse Practitioner Family
DX: E01.0 Iodine-deficiency related diffuse (endemic) goiter (principal); L65.9 Nonscarring hair loss, unspecified; D50.9 Iron deficiency anemia, unspecified; R63.5 Abnormal weight gain; R23.2 Flushing
CPT/HCPCS: 36415; 76536; 82306; 82533; 82607; 82627; 82728; 83001; 83002; 83540; 83550; 84402; 84403; 84443; 84481; 85025; 86376; 86800